=== PATIENT | female | born 1980 | race African-American/Black ===

== ENCOUNTER 2016-11-16 19:20 | Emergency (ER) | payer OTHER ==
[2016-11-16 19:23] VITALS: BP 127/91; PULSE 80; TEMP 98.8
[2016-11-16 19:51] VITALS: BMI 28.3
--- NOTE | 2016-11-16 20:20 | EDPRACDOC ---
- General Information Chief Complaint: Knee Pain Stated Complaint: LT KNEE PAIN NO RECENT INJURY Time Seen by Provider: 11/16/16 20:13 Information Source: Patient Mode of Arrival: Car Home Medications: Home Medications Aspirin/Caffeine [Bc Powder Packet (1000mg/65mg)] 1 esthela PO BID 11/16/16 Naproxen Sodium 500 mg PO BID PRN #20 tablet.sa 11/16/16 Allergies/Adverse Reactions: Allergies Allergy/AdvReac Type Severity Reaction Status Date / Time No Known Allergies Allergy Verified 11/16/16 20:02 - History of Present Illness Onset: 1 WEEK HPI: PT COMPLAINS OF LEFT KNEE PAIN X 1 WEEK, NO KNOWN INJURY, STATES PAIN WORSE WITH WALKING, PT STATES HAD SURGERY TO REPAIR TORN LIGAMENTS YEARS AGO, NO MEDS TAKEN FOR PAIN. Knee Problem Location: Left Mechanism: Reports: None Circumstances: Reports: Spontaneous Relevant History: Reports: Knee Operation Able to Bear Weight: Fully Pain Severity: Reports: Moderate Associated Signs & Symptoms: Denies: Swelling, Weakness, Numbness, Hip Pain, Thigh Pain, Leg Pain, Ankle Pain ED Past Medical History - History Reviewed Yes Nurses notes reviewed and agree except as marked No Past Medical History: Yes Patient has no past medical history - Patient Medical History Psychological History: Denies: Depression Surgical History: Denies: Hysterectomy - Social Medical History Smoking Status: Heavy tobacco smoker (5 or more cigarettes/day or daily pipe/ cigar) EDM Review of Systems - Review of Systems Neurological: negative: Dizziness, Numbness, Vertigo Musculoskeletal: Knee Integumentary: No Symptoms Reported - Physical Exam Constitutional: Alert (Awake), No apparent distress Oriented to: Time, Person, Place Last recorded Vital Signs: Last Vital Signs Temp 98.8 F 11/16/16 19:20 Pulse 80 11/16/16 19:20 Resp 18 11/16/16 19:20 BP 127/91 11/16/16 19:20 Pulse Ox 97 11/16/16 19:20 Oxygen Pulse Oxygen Saturation 97 O2 Device Room Air Oxygen Flow Rate Fraction of Inspired Oxygen ( FIO2) - HEENT Head: Normal ( normocephalic) - Integumentary Skin: Normal, Warm, Dry Lymphatics: Normal (no adenopathy) - Neurologic Memory Impaired: Normal Motor Function: Normal (Normal tone, Pulses 2+ No cyanosis or edema, FROM) Cranial Nerve: Normal (CN II-X11 intact sensation, strength 5/5) Cerebellar: Normal Mood Description: Normal Perception: Normal ED Knee Problem Phys Exam - Musculoskeletal Knee: Moderate Tenderness. negative: Swelling, Deformity, Joint Effusion, Limited ROM Knee Ligaments: Normal Knee Meniscus: Melvina's: Positive Thigh: Normal. negative: Swelling, Deformity Lower Leg: Normal. negative: Swelling, Deformity Distal Function/Circulation: Normal, Capillary Refill. negative: Motor Deficit , Pulse Deficit, Sensory Deficit - Integumentary Skin: Normal - Differential Diagnosis DJD Arthritis, Meniscus Injury, Sprain Decision Time to Discharge: 20:20 - Departure Disposition: Home Condition: Stable Final Diagnosis: Tendinitis of left knee Instructions: RICE Therapy (ED), Tendinitis (ED) Education/Counseling Given To: Patient Education/Counseling Given Regarding: Diagnosis, Treatment, Prognosis, Follow Up Referrals: Frankie Carroll MD [Staff Physician] - One Week Prescriptions: New Naproxen Sodium 500 mg PO BID PRN #20 tablet.sa PRN Reason: Pain No Action Aspirin/Caffeine [Bc Powder Packet (1000mg/65mg)] 1 esthela PO BID Forms: Excuse Note Additional Instructions: WEAR KNEE IMMOBILIZER, ELEVATE YOUR KNEE, APPLY COLD COMPRESSES NEEDED FOR PAIN OR SWELLING.
== END 2016-11-16 20:54 | disposition home or self-care (01) ==
LOC: EDMC 19:20
DX: M76.9 Unspecified enthesopathy, lower limb, excluding foot (principal); F17.200 Nicotine dependence, unspecified, uncomplicated
CPT/HCPCS: 99282